=== PATIENT | female | born 1985 | race Caucasian/White ===

== ENCOUNTER 2018-10-06 16:17 | Emergency (ER) | payer SELFPAY ==
[~2018-10-06] VITALS: Ht 170.1 cm; Wt 70.3 kg
[~2018-10-06 16:17] MED LIST: AMOXIL500 MG PO; AUGMENTIN 875 M1 TAB PO; FLAGYL500 MG PO; KEFLEX500 MG PO; MACROBID100 M1 PO; PERCOCET 325 MG1 TA7 PO; PERCOCET 650 MG1 TA1 PO; PRENATAL1 TA1
[2018-10-06] MEDS ORDERED: AUGMENTIN 875-875 MG PO (18:42)
[2018-10-06] MEDS ORDERED: BROMFED DM COU118 M2 PO (18:43)
[2018-10-06] MEDS ORDERED: OMNICEF300 MG PO (18:52)
== END 2018-10-06 19:20 | disposition home or self-care (01) ==
LOC: ED 16:17
DX: J06.9 Acute upper respiratory infection, unspecified (principal); H66.93 Otitis media, unspecified, bilateral; J02.9 Acute pharyngitis, unspecified

== ENCOUNTER 2024-01-29 22:21 | Emergency (ER) | payer SELFPAY ==
[~2024-01-29 22:21] MED LIST changes: +AUGMENTIN 875-875 MG PO; +BROMFED DM COU118 M2 PO; +OMNICEF300 MG PO
[2024-01-30] MEDS ORDERED: LORazepam 2 MG/ML VIAL IM ONE ×2 (00:50→01:40)
[2024-01-30] MEDS ORDERED: diphenhydrAMINE hydrochloride 50 MG/ML VIAL IM ONE ×2 (00:50→01:40)
[2024-01-30] MEDS ORDERED: Haloperidol Lactate 5 MG/ML AMP IM ONE ×2 (00:50→01:40)
[2024-01-30 01:19] LABS: BASO # 0.1 10*3/uL (0.0-0.1); BASO % 1.1 % (0.0-1.0); EOS % 0.3 % (1.0-4.0); HEMATOCRIT 39.2 % (37.0-47.0); LYMPH # 2.5 10*3/uL (1.3-4.4); LYMPH % 21.2 % (27.0-41.0); MEAN CORPUSCULAR HGB 26.7 pg (27.0-31.0); MEAN CORPUSCULAR HGB CONC 31.4 g/dl (33.0-37.0); MEAN PLATELET VOLUME 10.4 fl (9.6-12.3); MONO # 0.5 10*3/uL (0.1-1.0); MONO % 4.5 % (3.0-9.0); NEUT # 8.6 10*3/uL (2.3-7.9); NEUT % 72.7 % (47.0-73.0); PLATELET COUNT AUTOMATED 345 10*3/uL (130-400); RED BLOOD COUNT 4.61 10*6/uL (4.10-5.10); RED CELL DISTRI WIDTH 13.9 % (0-14.5); WHITE BLOOD COUNT 11.8 10*3/uL (4.8-10.8)
[2024-01-30 01:34] LABS: ALKALINE PHOSPHATASE 80 U/L (46-116); BUN 18 mg/dl (9-23); CHLORIDE 106 mmol/L (98-107); CPK 222 U/L (34-171); POTASSIUM 3.6 mmol/L (3.4-5.1); SGPT/ALT 15 U/L (5-49); TOTAL PROTEIN 7.9 gm/dL (6.0-8.0)
[2024-01-30] MEDS ORDERED: Midazolam Hydrochloride 5 MG/ML VIAL INH ONE (01:35)
[2024-01-30 01:36] LABS: ETHYL ALCOHOL < 3.0 mg/dl (<3)
[2024-01-30 10:17] LABS: BILIRUBIN Negative (Negative); BLOOD Negative (Negative); CLARITY Turbid (Clear); COLOR Yellow (Yellow); GLUCOSE Negative (Negative); KETONE Negative (Negative); LEUKO ESTERASE Trace (Negative); NITRITE Negative (Negative); PH 5.5 (4.5-8.0); SPECIFIC GRAVITY 1.025 (1.001-1.030); UROBILINOGEN 0.2 E.U./dl (0.0-1.0)
[2024-01-30 10:24] LABS: URINE AMPHETAMINES Positive (1000ng/ml); URINE BARBITURATES Negative (200ng/ml); URINE BENZODIAZEPINES Negative (200ng/ml); URINE CANNABINOIDS (THC) Negative (50ng/ml); URINE COCAINE Negative (300ng/ml); URINE METHADONE Negative (300ng/ml); URINE OPIATES Negative (300ng/ml); URINE PHENCYCLIDINE Negative (25ng/ml)
[2024-01-30 10:30] LABS: BACTERIA 1+
[2024-01-30 10:31] LABS: MUCOUS 2+
[2024-01-31 07:07] LABS: HEPATITIS B SURFACE AG Negative (Negative)
== END 2024-01-30 12:25 | disposition home or self-care (01) ==
LOC: ED 22:21
PROVIDERS: Emergency Medicine
DX: F22 Delusional disorders (principal); F15.10 Other stimulant abuse, uncomplicated; Z98.890 Other specified postprocedural states